=== PATIENT | female | born 1975 | race Caucasian/White ===

== ENCOUNTER 2016-10-10 11:00 | Inpatient (IN) | payer OTHER ==
[~2016-10-10] VITALS: Ht 160 cm; Wt 77.1 kg
--- NOTE | ~2016-10-10 | PA ---
Unit #: [id number] #: [id number] Patient: ROSA ISELA RIOJAS [id number] [facility] [address] [place] [address] [id number] I MR#: [id number] NAME: ROSA ISELA RIOJAS ROOM: P254 Age: 41 Sex: F Admission Date: 10/10/2016 : 1975 Date of Assessment: Attending Physician: Evangelina Edwards M.D. Admitting Physician: Evangelina Edwards M.D. PSYCHIATRIC ASSESSMENT DATE OF SERVICE 10/10/2016. IDENTIFYING DATA Ms. Riojas is a 41-year-old single white female, who is a resident of [place], [place], and was brought to the hospital by her ex-. CHIEF COMPLAINT "The patient would not speak." HISTORY OF PRESENT ILLNESS Ms. Riojas is a 41-year-old white female with history of mood disorder who was brought to the hospital, accompanied by the patient's ex- and daughter, who report that she stated that she wanted help and she is responding to internal voices and laughing a lot and reports that the patient will maybe say a word to the voices and laugh at the voices and no one knows what the current voices are saying to her, and daughter reports that her mother told her that she once thought that she has had lizard babies. However, she carries a diagnosis of schizoaffective bipolar and apparently has been selectively mute as she would not speak, and during evaluation, was not functioning and not responding and was seen to be acutely psychotic. The family has significant concern as the patient has been homeless at times and sometimes living with ex- and daughter and due to rent agreement that she cannot stay there; however, the patient was seen to be a significant danger to herself and as such, a recommendation for inpatient level of care for safety and stabilization was made and the patient was transferred to us. SUBSTANCE ABUSE HISTORY The patient does have a history of huffing gas, with the last use apparently a month ago and was unable to give information on rest of the substance abuse issues. PAST PSYCHIATRIC HISTORY The patient has had a history of multiple inpatient psychiatric hospitalizations including being at [facility], at [facility], and [place] and has done outpatient [facility] and has been diagnosed and treated for schizoaffective disorder and is supposed to be on Risperdal, but has been noncompliant with the medication and as such, has been decompensating. PAST MEDICAL HISTORY The patient's medical history is insignificant. Unit #: [id number] #: [id number] Patient: ROSA ISELA RIOJAS ALLERGIES No known medication allergies. CURRENT MEDICATIONS None. PERSONAL AND SOCIAL HISTORY A 41-year-old white female, who is single and essentially homeless and has unstable housing and living situation, though her ex- and daughter appear to be supportive. MENTAL STATUS EXAMINATION Middle-aged white female, who was casually dressed with fair personal hygiene, appears to be in no acute distress or discomfort. She was awake and alert with impaired attention and concentration and was seen to be mute throughout evaluation and as such, rest of the mental status examination could not be completed, though there is a strong suspicion that the patient is responding to internal stimuli. DIAGNOSTIC IMPRESSION Psychiatric: Schizoaffective disorder, most recent episode depressed, recurrent, moderate, with psychosis. Medical: None. Stressors: Moderate psychosocial stressors. TREATMENT PLAN 1. The patient has presented with a history of chronic mental illness and has been decompensating and will need inpatient hospitalization for safety and stabilization. We will start her back on her home medications. We will adjust the medications and encourage the patient to show better compliance with treatment recommendations. 2. Supportive therapy was provided to the patient. ESTIMATED LENGTH OF STAY 5 to 7 days. ABILITY TO HELP SELF Limited. WILLINGNESS TO HELP SELF The patient appears to be willing to help self. STRENGTHS 1. Communicative. 2. Cooperative. PROBLEMS 1. Chronic dysphoric symptoms. 2. Poor social support system. DISCHARGE CRITERIA This will be contingent upon the patient's ability to show resolution of her depression and psychosis as well as her ability to stay safe to herself, particularly after discharge from the hospital. Dictated by... Unit #: [id number] #: [id number] Patient: ROSA ISELA RIOJAS Bev Wolf/whit TD: 10/11/2016 15:33 JOB #: [id number] PSYCHIATRIC ASSESSMENT Page 1 of 1 X Evangelina Edwards MD X PSYCHIATRIC ASSESSMENT
--- NOTE | ~2016-10-10 | PN ---
Unit #: [id number] #: [id number] Patient: ROSA ISELA RIOJAS [id number] [facility] [address] [place] [address] [id number] I MR#: [id number] NAME: ROSA ISELA RIOJAS ROOM: [facility] Age: 41 Sex: F Admission Date: 10/10/2016 : 1975 Attending Physician: Evangelina Edwards M.D. Admitting Physician: Bev Wolf PROGRESS NOTES DATE 10/13/2016 DISCUSSION Ms. Riojas is a 41-year-old white female who was seen today and chart was reviewed and case was discussed with the staff. She appears to be doing somewhat better than yesterday as she is laying in her bed and she was awake and had her legs crossed and was fidgeting with her fingernails and though she acknowledges me, she did not make eye contact and when questioned about how she is doing, she just shook her head which has been so far the most communication I have had. It appears that she slowly appears to be coming around. MENTAL STATUS EXAMINATION Middle-aged white female who was casually dressed with fair personal hygiene and appears to be in no acute distress or discomfort. She was awake and alert with impaired attention and concentration. Her mood was anxious with congruent affect. Her thought processes were disorganized with some looseness of associations and thought blocking. Her insight and judgement remains significantly impaired. TREATMENT PLAN 1. Will continue on current medications and treatment protocol. Will monitor her response and make further adjustments as needed. 2. Will continue to follow up. Dictated by... Bev Wolf/lamont TD: 10/13/2016 16:40 JOB #: [id number] Unit #: [id number] #: [id number] Patient: ROSA ISELA RIOJAS PROGRESS NOTES Page 1 of 1 X Evangelina Edwards MD PROGRESS NOTE
--- NOTE | ~2016-10-10 | PN ---
Unit #: [id number] #: [id number] Patient: ROSA ISELA RIOJAS [id number] [facility] [address] [place] [address] [id number] I MR#: [id number] NAME: ROSA ISELA RIOJAS ROOM: [facility] Age: 41 Sex: F Admission Date: 10/10/2016 : 1975 Attending Physician: Evangelina Edwards M.D. Admitting Physician: Bev Wolf PROGRESS NOTES DATE 10/15/2016 DISCUSSION Ms. Riojas is a 41-year-old white female who was seen today and chart was reviewed and case was discussed with the staff. She remains anxious, withdrawn, disorganized and rather seclusive to herself with a blunted affect and refused carry on meaningful conversation and refusing to cooperate with treatment and as such mental inquest warrant has been initiated for concern regarding patient's safety and stability. MENTAL STATUS EXAMINATION Middle-aged white female who was casually dressed with fair personal hygiene and appears to be in no acute distress or discomfort. She was awake and alert with impaired attention and concentration. Her mood was anxious with congruent affect. Her thought processes were disorganized with some looseness of associations and thought blocking and paranoid ideations. Her insight and judgement remains significantly impaired. TREATMENT PLAN 1. Will continue on current medications and treatment protocol. Will monitor her response to the medications and make further adjustments as needed. 2. Will continue to follow up. Dictated by... Bev Wolf/lamont TD: 10/15/2016 21:09 JOB #: [id number] Unit #: [id number] #: [id number] Patient: ROSA ISELA RIOJAS PROGRESS NOTES Page 1 of 1 X Evangelina Edwards MD PROGRESS NOTE
--- NOTE | ~2016-10-10 | PN ---
Unit #: [id number] #: [id number] Patient: ROSA ISELA RIOJAS [id number] [facility] [address] [place] [address] [id number] I MR#: [id number] NAME: ROSA ISELA RIOJAS ROOM: [facility] Age: 41 Sex: F Admission Date: 10/10/2016 : 1975 Attending Physician: Evangelina Edwards M.D. Admitting Physician: Bev Wolf PROGRESS NOTES DATE OF SERVICE: 10/16/2016 SUBJECTIVE Ms. Rijoas is a 41-year-old white female, who was seen today, chart was reviewed, and case was discussed with the staff. She has been anxious, withdrawn, and rather seclusive to herself. Meanwhile, she has been cooperative with treatment recommendations and has been taking the medications and tolerating them fairly well with no reported side effects. MENTAL STATUS EXAMINATION Middle-aged white female, who was casually dressed with fair personal hygiene, appears to be in no acute distress or discomfort. She was awake and alert on interaction with intact orientation. Her mood was anxious with a congruent affect. Her speech was slow and restricted in content. The patient denies any suicidal or homicidal ideations. Her insight and judgment remain slightly impaired. TREATMENT PLAN 1. We will continue her on her current treatment protocol. We will monitor her response to the medications and make further adjustments as needed. 2. We will continue to follow up. Dictated by... Bev Wolf/jean-paull TD: 10/19/2016 01:15 JOB #: [id number] [facility] PROGRESS NOTES Page 1 of 1 X Evangelina Edwards MD X PROGRESS NOTE
--- NOTE | ~2016-10-10 | HP ---
Unit #: [id number] #: [id number] Patient: ROSA ISELA RIOJAS [id number] [place] [address] [id number] I MR#: [id number] NAME: ROSA ISELA RIOJAS ROOM: P254 Age: 41 Sex: F Admission Date: 10/10/2016 : 1975 Attending Physician: Evangelina Edwards M.D. Admitting Physician: Evangelina Edwards M.D. HISTORY AND PHYSICAL HISTORY OF PRESENT ILLNESS The patient is a 41-year-old female admitted to [address] [place] [address] on 10/10/2016 for psychosis. Although awake, patient did not speak to me and only looked to me during examination. PAST MEDICAL HISTORY Unknown. PAST SURGICAL HISTORY Per chart, bilateral tubal ligation. SOCIAL HISTORY Per chart she is disabled and homeless. Denies alcohol, tobacco, and drug use. FAMILY MEDICAL HISTORY Noncontributory. ALLERGIES No known drug allergies. CURRENT MEDICATIONS Risperdal. REVIEW OF SYSTEMS The patient did not answer questions about review of systems. PHYSICAL EXAMINATION GENERAL: She is awake and alert, in no acute distress. VITAL SIGNS: Temperature 98.5, heart rate 90, respirations 14, blood pressure 124/89. HEIGHT: 5 feet 3. WEIGHT: 170 pounds. SKIN: Warm and dry without rash or lesion. HEENT: Normocephalic. TMs not viewed. Oral and nasal passages clear. Conjunctivae clear. PERRLA. EOMs intact. NECK: Supple without lymphadenopathy or thyromegaly. HEART: Regular rate and rhythm without murmur. LUNGS: Clear. ABDOMEN: Soft, nontender. : Not done. EXTREMITIES: No evidence of cyanosis, clubbing or edema. Moves all without focal deficit. NEUROLOGICAL: Grossly within normal limits. Unit #: [id number] #: [id number] Patient: ROSA ISELA RIOJAS Cranial Nerves: II: Visual bella are intact. III, IV AND : Extraocular movements are intact. Pupils are equal, round and reactive to light. V: Facial sensation is grossly normal. VII: Facial movements and expression are normal. VIII: Auditory acuity grossly intact. IX, X: Uvula is midline. Phonation is normal. XI: Patient shrugs shoulders and turns head normally. XII: Tongue protrudes in the midline. Sensory and Motor Function: Sensory and motor sensation is grossly normal. Motor: moves all extremities well. IMPRESSION Psychiatric admission. RECOMMENDATIONS PSYCHIATRIC: Per psychiatrist. MEDICAL: No contraindication to participate in this facility activities. MEDICAL PROGNOSIS Fair. MEDICAL CONDITION Stable. Dictated by... Sera Esquivel TD: 10/12/2016 06:54 JOB #: [id number] HISTORY AND PHYSICAL Page 1 of 1 X MABEL SANCHES APRN HISTORY AND PHYSICAL
--- NOTE | ~2016-10-10 | DS ---
Unit #: [id number] #: [id number] Patient: [facility] [id number] [facility] [address] [place] [address] [id number] I MR#: [id number] NAME: ROSA ISELA RIOJAS ROOM: [facility] Age: 41 Sex: F Admission Date: 10/10/2016 : 1975 Discharge Date: 10/19/2016 Attending Physician: Evangelina Edwards M.D. DISCHARGE SUMMARY IDENTIFICATION DATA Ms. Riojas is a 41-year-old single white female who is a resident of [place], [place], and was brought to the hospital by her ex-. self-referred to the hospital. DISCHARGE DIAGNOSES PSYCHIATRIC: Schizoaffective disorder, bipolar type, most recent episode, depressed, recurrent, moderate, with psychosis. MEDICAL: None. STRESSORS: Mild psychosocial stressor. HISTORY OF PRESENT ILLNESS Same as in initial psychiatric evaluation. PAST PSYCHIATRIC HISTORY Same as in initial psychiatric evaluation. PAST MEDICAL HISTORY Same as in initial psychiatric evaluation. HOSPITAL COURSE The patient was admitted to the adult psychiatric unit at [facility] and was oriented to the hospital environment. Routine p.r.n. medications were initiated, and she was started back on her home medications, and medications were adjusted, and the patient initially was seen to be mute, catatonic, refusing to talk, interacts, socializes, and was just staying in one posture, and as such recommendation for long-acting injection with antipsychotic was made primarily due to a history of poor compliance with medications and after rule out hypersensitivity to the molecule of Risperdal. Invega Sustenna was initiated, and the patient was able to receive both the loading doses well in the hospital followed by which it was decided that she will be discharged home. We will continue treatment on outpatient basis. DISCHARGE MEDICATIONS Invega Sustenna 156 mg intramuscular once a month with the next dose being due to November 18, 2016. CONDITION AT DISCHARGE Stable. PROGNOSIS Fair. Unit #: [id number] #: [id number] Patient: ROSA ISELA RIOJAS Dictated by... Evangelina Edwards M.D. IAA/bzg TD: 10/21/2016 12:28 JOB #: [id number] DISCHARGE SUMMARY Page 1 of 1 X Evangelina Edwards MD DISCHARGE SUMMARY
--- NOTE | ~2016-10-10 | PN ---
Unit #: [id number] #: [id number] Patient: ROSA ISELA RIOJAS [id number] [facility] [address] [place] [address] [id number] I MR#: [id number] NAME: ROSA ISELA RIOJAS ROOM: [facility] Age: 41 Sex: F Admission Date: 10/10/2016 : 1975 Attending Physician: Evangelina Edwards M.D. Admitting Physician: Bev Wolf PROGRESS NOTES DATE OF SERVICE 10/17/2016 DISCUSSION Ms. Riojas is a 41-year-old white female who was seen today and chart was reviewed and case was discussed with the staff. She remains anxious, withdrawn and rather seclusive to herself. Meanwhile, she has been cooperative with treatment recommendations though has exhibited signs and symptoms of urinary tract infection. An urinalysis has been done which appears to be positive and as such we will recommend initiating an antibiotic therapy. MENTAL STATUS EXAMINATION Middle-aged white female who was casually dressed with fair personal hygiene, appears to be in no acute distress or discomfort. She was awake and alert on interaction with intact orientation. Her mood was anxious with congruent affect. She denies any suicidal or homicidal ideations. Her insight and judgement remains slightly impaired. TREATMENT PLAN 1. We will continue her on her current treatment protocol. We will monitor her response to the medication and make further adjustments as needed. 2. We will continue to follow up. Dictated by... Bev Wolf/stanley TD: 10/19/2016 02:49 JOB #: [id number] Unit #: [id number] #: [id number] Patient: ROSA ISELA RIOJAS PROGRESS NOTES Page 1 of 1 X Evangelina Edwards MD PROGRESS NOTE
--- NOTE | ~2016-10-10 | PN ---
Unit #: [id number] #: [id number] Patient: ROSA ISELA RIOJAS [id number] [facility] [address] [place] [address] [id number] I MR#: [id number] NAME: ROSA ISELA RIOJAS ROOM: P254 Age: 41 Sex: F Admission Date: 10/10/2016 : 1975 Attending Physician: Evangelina Edwards M.D. Admitting Physician: Bev Wolf PROGRESS NOTES DATE OF SERVICE: 10/11/2016 SUBJECTIVE Ms. Riojas is a 41-year-old white female, who was seen today and chart was reviewed, and case was discussed with the staff. She has been anxious, withdrawn, depressed, and rather seclusive to herself. Meanwhile, she has been cooperative with treatment recommendations; however, she has been refusing to talk she was lying in the bed and did not appear to be in any acute distress or discomfort. However, staff reported that she would not talk to anyone and has been maintaining the selective mutism ever since she first got admitted. MENTAL STATUS EXAMINATION A middle-aged white female, who was casually dressed with a fair personal hygiene and appears to be in no acute distress or discomfort. She was awake and alert with impaired attention and concentration. Her mood was anxious with a congruent affect. Her speech was slow and restricted in content. She denies any suicidal or homicidal ideations. Her insight and judgment remain slightly impaired. TREATMENT PLAN 1. We will continue on her current medications and treatment protocol, but we will consider her to be a candidate for antipsychotic due to her history of poor compliance with medications. 2. We will continue to follow up. Dictated by... Bev Wolf/jean-paull TD: 10/13/2016 03:05 JOB #: [id number] Unit #: [id number] #: [id number] Patient: ROSA ISELA RIOJAS PROGRESS NOTES Page 1 of 1 X Evangelina Edwards A MD X PROGRESS NOTE
--- NOTE | ~2016-10-10 | PN ---
Unit #: [id number] #: [id number] Patient: ROSA ISELA RIOJAS [id number] [facility] [address] [place] [address] [id number] I MR#: [id number] NAME: ROSA ISELA RIOJAS ROOM: [facility] Age: 41 Sex: F Admission Date: 10/10/2016 : 1975 Attending Physician: Evangelina Edwards M.D. Admitting Physician: Bev Wolf PROGRESS NOTES DATE 10/14/2016 DISCUSSION Ms. Riojas is a 41-year-old white female who was seen today and chart was reviewed and case was discussed with the staff. She has been anxious, withdrawn and rather seclusive to herself. Meanwhile, she has been cooperative with treatment recommendations and has been taking medications and tolerating them fairly well with no reported side effects. MENTAL STATUS EXAMINATION Middle-aged white female who was casually dressed with fair personal hygiene and appears to be in no acute distress or discomfort. She was awake and alert with impaired attention and concentration. Her mood was anxious with congruent affect. Her speech is slow and restricted in content. She denies any suicidal or homicidal ideations. Her insight and judgement remains slightly impaired. TREATMENT PLAN 1. Will continue on current medications and treatment protocol. Will monitor her response to the medications and make further adjustments as needed. 2. Will continue to follow up. Dictated by... Bev Wolf/lamont TD: 10/14/2016 15:07 JOB #: [id number] Unit #: [id number] #: [id number] Patient: ROSA ISELA RIOJAS PROGRESS NOTES Page 1 of 1 X Evangelina Ewdards MD X PROGRESS NOTE
--- NOTE | ~2016-10-10 | PN ---
Unit #: [id number] #: [id number] Patient: ROSA ISELA RIOJAS [id number] [facility] [address] [place] [address] [id number] I MR#: [id number] NAME: ROSA ISELA RIOJAS ROOM: P254 Age: 41 Sex: F Admission Date: 10/10/2016 : 1975 Attending Physician: Evangelina Edwards M.D. Admitting Physician: Bev Wolf PROGRESS NOTES DATE 10/12/2016 DISCUSSION Ms. Riojas is a 41-year-old white female who was seen today and chart was reviewed and case was discussed with the staff. She was laying in her bed and once again refusing to talk weighing selectively mute and does not appear to be in any acute distress or discomfort but chooses not to talk, answer or carry on any conversations. She has been initiated on long-acting injectable anti-psychotic and we will hope that she is will able to get a first injection today. MENTAL STATUS EXAMINATION Middle-aged white female who was casually dressed with fair personal hygiene, appears to be in no acute distress or discomfort. She was awake and alert with impaired attention and concentration. Her mood was anxious with congruent affect. Her speech was slow and restricted in content. Her thought processes were disorganized with some looseness of associations and thought blocking and paranoid ideations. Her insight and judgement remains significantly impaired. TREATMENT PLAN 1. We will continue her on her current medications and treatment protocol. We will monitor her response to the medication and make further adjustments as needed. 2. We will continue to follow up. Dictated by... Bev Wolf/stanley TD: 10/12/2016 22:38 JOB #: [id number] Unit #: [id number] #: [id number] Patient: ROSA ISELA RIOJAS PROGRESS NOTES Page 1 of 1 X Evangelina Edwards MD PROGRESS NOTE
[2016-10-16 11:43] LABS: URINE APPEARANCE CLOUDY; URINE BILIRUBIN NEG (NEG); URINE BLOOD TRACE (NEG); URINE COLOR YELLOW; URINE GLUCOSE NEG (NEG); URINE KETONE NEG (NEG); URINE LEUKOCYTE ESTERASE 3+ (NEG); URINE NITRATE NEG (NEG); URINE PH 6.5 (5-8); URINE PROTEIN NEG (NEG); URINE SPECIFIC GRAVITY 1.005 (1.003-1.035); URINE UROBILINOGEN 0.2 MG/DL (NEG)
[2016-10-16 11:48] LABS: URBCS1 AUWI 0-2 /[HPF] (0-2); URINE BACTERIA AUWI 1+ (NEGATIVE); URINE SQUAMOUS EPITHELIAL CELL FEW /[HPF]; UWBCS1 AUWI 50-100 (0-5)
[2016-10-16 12:55] LABS: AMPHETAMINE NEG (NEG); BARBITURATES NEG (NEG); BENZODIAZEPINES NEG (NEG); COCAINE NEG (NEG); MARIJUANA NEG (NEG); OPIATES NEG (NEG); TRICYCLIC ANTIDEPRESSANTS NEG (NEG); U METHADONE NEG (NEG)
== END 2016-10-19 14:15 | disposition home or self-care (01) | DRG 885 ==
LOC: P2L 14:24
PROVIDERS: Psychiatry & Neurology Psychiatry
DX: F25.9 Schizoaffective disorder, unspecified (principal); Z79.899 Other long term (current) drug therapy
CPT/HCPCS: 80307; 81003